=== PATIENT | female | born 1955 | race Caucasian/White ===

== ENCOUNTER 2016-06-27 16:14 | Emergency (ER) | payer OTHER ==
[~2016-06-27] VITALS: Ht 165.1 cm; Wt 72.5 kg
[~2016-06-27 16:14] MED LIST: CIPR500T4 PO; DENO60P SC; PRED20 PO; PRIL20CA PO; QUET200 PO; TRAZ100 PO; TYLE3 PO; VENO20IN IV; VENTAER INH; VITA100020 IM
[2016-06-27 16:17] VITALS: BP 116/59; PULSE 104; RESP 24; TEMP 98; O2SAT 94
--- NOTE | 2016-06-27 16:49 | PD ---
Physical Exam Time Seen by Provider: 16:47 Narrative 60 y/o female presents for evaluation of abdominal pain for 6 days. Hx of diverticulosis. Endorses diarrhea, abdominal distension. vss Seen at triage desk. Awaiting bed placement. Data Data Last Documented VS Vital Signs Date Time Temp Pulse Resp B/P Pulse Ox O2 Delivery O2 Flow Rate FiO2 06/27/16 16:17 98.0 104 24 116/59 94 Room Air MDM Medical Record Reviewed: Yes Supervised Visit with SULY: No Narrative Course 1653: very soon after this patient was checked in she eleced to leave AMA. She was seen walking out and there was no chance to discuss with the patient the risks of leaving AMA. Koby Amezcua June 27, 2016 16:49
[2016-06-27] MEDS ORDERED: DULE200A INH (17:46)
[2016-06-27] MEDS ORDERED: SYMB160A INH (17:46)
[2016-06-27] MEDS ORDERED: [UNRECOGNIZED DRUG - CODE] PO (17:46)
[2016-06-27] MEDS ORDERED: TRAZ100T4 PO (17:46)
[2016-06-27] MEDS ORDERED: VENTAER INH (17:46)
[2016-06-27] MEDS ORDERED: QUET1TAB9 PO (17:46)
[2016-06-27] MEDS ORDERED: LINA290C PO (17:46)
[2016-06-27] MEDS ORDERED: METR-1 PO (20:58)
[2016-06-27] MEDS ORDERED: CIPR-9 PO (20:58)
[2016-06-27] MEDS ORDERED: PERC5TAB12 PO (20:58)
== END 2016-06-27 16:52 | disposition left against medical advice (07) ==
LOC: NED 16:14
DX: R10.9 Unspecified abdominal pain (principal); R19.7 Diarrhea, unspecified; R14.0 Abdominal distension (gaseous); Z87.19 Personal history of other diseases of the digestive system; Z53.20 Procedure and treatment not carried out because of patient's decision for unspecified reasons
CPT/HCPCS: 99283

== ENCOUNTER 2016-06-27 17:22 | Emergency (ER) | payer OTHER ==
[~2016-06-27] VITALS: Ht 167.6 cm; Wt 73.0 kg
[2016-06-27 17:25] VITALS: BP 97/75; PULSE 94; RESP 16; TEMP 98.2; O2SAT 96
[2016-06-27] MEDS ORDERED: LINA290C PO (17:46)
[2016-06-27] MEDS ORDERED: DULE200A INH (17:46)
[2016-06-27] MEDS ORDERED: [UNRECOGNIZED DRUG - CODE] PO (17:46)
[2016-06-27] MEDS ORDERED: VENTAER INH (17:46)
[2016-06-27] MEDS ORDERED: QUET1TAB9 PO (17:46)
[2016-06-27] MEDS ORDERED: SYMB160A INH (17:46)
[2016-06-27] MEDS ORDERED: TRAZ100T4 PO (17:46)
[2016-06-27] MEDS ORDERED: SODIUM CHLOR 0.9% 1000 ML INJ 1,000 ML IV SCH (18:01)
--- NOTE | 2016-06-27 18:04 | PD ---
HPI Chief Complaint: Abdominal Pain Time Seen by Provider: 17:54 Travel History International Travel<30 days: No Contact w/Intl Traveler<30days: No Traveled to known affect area: No History of Present Illness HPI 60-year-old female with history of Bunny-en-Y gastric bypass surgery in 1998, hysterectomy, appendectomy, cholecystectomy, here for evaluation of abdominal pain and bloating. Symptoms similar going on for about a week, worse today. Patient reports that initially she was constipated, however is taking medications for this and is now having diarrhea. She feels nauseous but has not vomited. She has not noted any fevers or chills. No urinary symptoms. No vaginal bleeding or discharge. She reports a history of diverticulitis. PFSH Past Medical History Arthritis: Yes (RA, OA) Diabetes: No Diminished Hearing: No Diverticulitis: Yes Fibromyalgia: Yes Gastrointestinal Disorders: Yes (CONSTIPATION) GERD: Yes Neurologic: Yes (ms) Respiratory: Yes (COPD) Tetanus Vaccination: < 5 Years Influenza Vaccination: Yes ?: Not Past Surgical History Abdominal Surgery: Yes (GASTRIC BYPASS) Appendectomy: Yes Cholecystectomy: Yes Hysterectomy: Yes Tonsillectomy: Yes Other Surgery: Yes (FACE LIFT) Social History Alcohol Use: Yes (SOC) Tobacco Use: No (QUIT 11/2015) Substance Use: No Allergies-Medications (Allergen,Severity, Reaction): Coded Allergies: Latex (Verified Allergy, Severe, Rash, 06/27/16) Sulfa (Verified Allergy, Severe, Anaphylaxis, 06/27/16) Reported Meds & Prescriptions Reported Meds & Active Scripts Active Reported Polyethylene Glycol 3350 (Polyethylene Glycol 3350 (Bulk) 1 Gra Gra 1 PO DIRECTED Linzess (Linaclotide) 290 Mcg Cap 290 Mcg PO DAILY Dulera 120 Act Inh (Mometasone-Formoterol 120 Act Inh) 200-5 Mcg/Act Inh 2 Puff INH BID Symbicort Inh (Budesonide/Formoterol Fumarate) 160-4.5 Mcg/Act Aero 1 Puff INH Q12HR Ventolin Hfa 18 GM Inh (Albuterol Sulfate) 90 Mcg/Act Aer 1 Puff INH Q4H PRN Quetiapine (Quetiapine Fumarate) 200 Mg Tab 200 Mg PO HS Trazodone (Trazodone HCl) 100 Mg Tab 100 Mg PO HS Review of Systems Except as stated in HPI: all other systems reviewed are Neg Physical Exam Narrative GENERAL: Well-developed, well-nourished,no acute distress SKIN: Focused skin assessment warm/dry. HEAD: Atraumatic. Normocephalic. EYES: Pupils equal and round. No scleral icterus. No injection or drainage. ENT: Mucous membranes pink and moist. NECK: Trachea midline. No JVD. CARDIOVASCULAR: Regular rate and rhythm. RESPIRATORY: No accessory muscle use. Clear to auscultation. Breath sounds equal bilaterally. GASTROINTESTINAL: Abdomen soft, mildly distended with moderate diffuse tenderness. No peritoneal signs. Large/well-healed/midline/vertical surgical scar. Normal bowel sounds. MUSCULOSKELETAL: No obvious deformities. No clubbing. No cyanosis. No edema. NEUROLOGICAL: Awake and alert. No obvious cranial nerve deficits. Motor grossly within normal limits. Normal speech. PSYCHIATRIC: Appropriate mood and affect; insight and judgment normal. Data Data Last Documented VS Vital Signs Date Time Temp Pulse Resp B/P Pulse Ox O2 Delivery O2 Flow Rate FiO2 06/27/16 18:19 98 Room Air 06/27/16 17:25 98.2 94 16 97/75 Orders Complete Blood Count With Diff (06/27/16 18:01) Comprehensive Metabolic Panel (06/27/16 18:01) Lipase (06/27/16 18:01) Lactic Acid (06/27/16 18:01) Prothrombin Time / Inr (Pt) (06/27/16 18:01) Act Partial Throm Time (Ptt) (06/27/16 18:01) Urinalysis - C+S If Indicated (06/27/16 18:01) Ct Abd/Pel W Iv Contrast(Rout) (06/27/16 18:01) Iv Access Insert/Monitor (06/27/16 18:01) Ecg Monitoring (06/27/16 18:01) Oximetry (06/27/16 18:01) Ondansetron Inj (Zofran Inj) (06/27/16 18:15) Sodium Chlor 0.9% 1000 Ml Inj (Ns 1000 M (06/27/16 18:01) Sodium Chloride 0.9% Flush (Ns Flush) (06/27/16 18:15) Electrocardiogram (06/27/16 18:01) Oral Contrast - Adult (06/27/16 18:09) Diatrizoate Liq ( Gastrorohit Liq) (06/27/16 18:21) Iohexol 350 Inj (Omnipaque 350 Inj) (06/27/16 20:20) Ciprofloxacin (Cipro) (06/27/16 21:00) Metronidazole (Flagyl) (06/27/16 21:00) Labs Laboratory Tests Test 06/27/16 06/27/16 18:15 18:30 White Blood Count 5.5 TH/MM3 Red Blood Count 5.13 MIL/MM3 Hemoglobin 13.7 GM/DL Hematocrit 41.9 % Mean Corpuscular Volume 81.7 FL Mean Corpuscular Hemoglobin 26.7 PG Mean Corpuscular Hemoglobin 32.6 % Concent Red Cell Distribution Width 14.8 % Platelet Count 302 TH/MM3 Mean Platelet Volume 7.9 FL Neutrophils (%) (Auto) 55.8 % Lymphocytes (%) (Auto) 29.1 % Monocytes (%) (Auto) 10.1 % Eosinophils (%) (Auto) 2.5 % Basophils (%) (Auto) 2.5 % Neutrophils # (Auto) 3.1 TH/MM3 Lymphocytes # (Auto) 1.6 TH/MM3 Monocytes # (Auto) 0.6 TH/MM3 Eosinophils # (Auto) 0.1 TH/MM3 Basophils # (Auto) 0.1 TH/MM3 CBC Comment DIFF FINAL Differential Comment Urine Color YELLOW Urine Turbidity CLEAR Urine pH 5.5 Urine Specific Sharon 1.021 Urine Protein NEG mg/dL Urine Glucose (UA) NEG mg/dL Urine Ketones NEG mg/dL Urine Occult Blood NEG Urine Nitrite NEG Urine Bilirubin NEG Urine Leukocyte Esterase TRACE Urine RBC 0-3 /hpf Urine WBC 0-2 /hpf Urine Squamous Epithelial 0-5 /hpf Cells Urine Calcium Oxalate Crystals MANY /hpf Microscopic Urinalysis Comment CULT NOT INDICATED Sodium Level 142 MEQ/L Potassium Level 4.4 MEQ/L Chloride Level 104 MEQ/L Carbon Dioxide Level 29.4 MEQ/L Anion Gap 9 MEQ/L Blood Urea Nitrogen 10 MG/DL Creatinine 0.62 MG/DL Estimat Glomerular Filtration 99 ML/MIN Rate Random Glucose 83 MG/DL Lactic Acid Level 0.8 mmol/L Calcium Level 8.8 MG/DL Total Bilirubin 0.7 MG/DL Aspartate Amino Transf 20 U/L (AST/SGOT) Alanine Aminotransferase 14 U/L (ALT/SGPT) Alkaline Phosphatase 107 U/L Total Protein 6.7 GM/DL Albumin 3.3 GM/DL Lipase 163 U/L Prothrombin Time 10.1 SEC Prothromb Time International 0.9 RATIO Ratio Activated Partial 25.7 SEC Thromboplast Time MDM Medical Decision Making Medical Screen Exam Complete: Yes Emergency Medical Condition: Yes Differential Diagnosis Diverticulitis, colitis, internal hernia, pancreatitis, hepatobiliary disease Narrative Course Initial vital signs show heart rate 94, blood pressure 97/75, pulse ox 98% on room air, oral temp of 98.2F. CBC is unremarkable. CMP is unremarkable. Lactic acid is 0.8. UA shows trace site esterase, many calcium oxalate crystals, otherwise unremarkable. CT abdomen pelvis: CONCLUSION: 1. Mild, uncomplicated sigmoid colon diverticulitis. 2. Previous gastric bypass. Very small hiatal hernia. 3. Previous cholecystectomy and hysterectomy. 4. 8mm nodule of the visualized left lung base. It abuts the pleura. Followup noncontrast chest CT is recommended in 4-6 months. Patient was made aware of all findings as well as the pulmonary nodule and recommendation for repeat CT in 4-6 months. She was given a copy of this CT report. She did not wish to receive any pain medication while in the emergency department. She is hopeful that she will be able to be discharged home. I will start her on Cipro and Flagyl. PMD follow-up this week. She was informed on when to return to the emergency department. She verbalizes understanding and agreement with plan. Diagnosis Primary Impression: Sigmoid diverticulitis Additional Impression: Pulmonary nodule Referrals: Primary Care Physician 3 days Additional Instructions: Take antibiotics as prescribed. Follow-up with your primary care physician this week. Return to the emergency department for worsening symptoms or any other concerns. Scripts Oxycodone-Acetaminophen (Percocet)5-325 mg Tab1 Tab PO Q6H PRN (PAIN) #15 TAB Ref 0 Prov:Steven Moreno MD 06/27/16 Metronidazole (Flagyl)500 Mg [id number] Mg PO BID 10 Days Ref 0 Prov:Steven Moreno MD 06/27/16 Ciprofloxacin (Cipro)500 Mg [id number] Mg PO BID 10 Days Ref 0 Prov:Steven Moreno MD 06/27/16 Disposition: 01 DISCHARGE HOME Condition: Stable Steven Moreno MD June 27, 2016 18:04
[2016-06-27] MEDS ORDERED: ONDANSETRON HCL 4 MG/2 ML VIAL IVP ONE (18:15)
[2016-06-27] MEDS ORDERED: SODIUM CHLORIDE 0.9% FLUSH 10 ML FLUSH IV FLUSH PRN (18:15)
[2016-06-27 18:19] VITALS: O2SAT 98
[2016-06-27] MEDS ORDERED: DIATRIZOATE MEGLUM/DIATRIZOATE SOD 9 ML CUP ONE (18:21)
[2016-06-27 18:26] LABS: BLOOD, URINE NEG (NEG); GLUCOSE,URINE NEG (NEG); KETONE, URINE NEG (NEG); NITRITE,URINE NEG (NEG); PH, URINE 5.5 (5.0-8.5)
[2016-06-27 18:27] LABS: AUTOMATED NEUTROPHIL # 3.1 TH/MM3 (1.8-7.7); BASOPHIL # 0.1 TH/MM3 (0-0.2); BASOPHIL % 2.5 % (0.0-2.0); EOSINOPHIL # 0.1 TH/MM3 (0-0.4); EOSINOPHIL % 2.5 % (0.0-4.0); HEMATOCRIT 41.9 % (35.0-46.0); HEMO FLAGS DIFF FINAL; LYMPH % 29.1 % (9.0-44.0); LYMPHOCYTE # 1.6 TH/MM3 (1.0-4.8); MEAN CELL VOLUME 81.7 FL (80.0-100.0); MEAN CORPUSCULAR HEMOGLOBIN 26.7 PG (27.0-34.0); MEAN CORPUSCULAR HGB CONC 32.6 % (32.0-36.0); MONO % 10.1 % (0.0-8.0); NEUT % 55.8 % (16.0-70.0); PLATELET COUNT 302 TH/MM3 (150-450); RED BLOOD COUNT 5.13 MIL/MM3 (4.00-5.30); RED CELL DISTRIBUTION WIDTH 14.8 % (11.6-17.2); WHITE BLOOD COUNT 5.5 TH/MM3 (4.0-11.0)
[2016-06-27 18:41] LABS: URINE COLOR YELLOW (YELLW/STRAW)
[2016-06-27 18:42] LABS: CALCIUM OXALATE CRYSTALS,URINE MANY /hpf; COMMENT (UR) CULT NOT INDICATED; CULTURE IF INDICATED CULT NOT INDICATED; RBC, URINE 0-3 /hpf (0-3); SQUAMOUS EPITHELIAL CELL URINE 0-5 /hpf (0-5); WBC, URINE 0-2 /hpf (0-5)
[2016-06-27 18:46] LABS: CHLORIDE 104 MEQ/L (98-107); POTASSIUM 4.4 MEQ/L (3.5-5.1); SODIUM (NA) 142 MEQ/L (136-145)
[2016-06-27 18:50] LABS: ANION GAP 9 MEQ/L (5-15); BICARBONATE 29.4 MEQ/L (21.0-32.0); BLOOD UREA NITROGEN 10 MG/DL (7-18)
[2016-06-27 18:53] LABS: ALT (GPT) 14 U/L (10-53); AST (GOT) 20 U/L (15-37); GLOMERULAR FILTRATION RATE 99 ML/MIN (>89)
[2016-06-27 18:55] LABS: TOTAL BILIRUBIN ADULT 0.7 MG/DL (0.2-1.0)
[2016-06-27 18:56] LABS: ALKALINE PHOSPHATASE 107 U/L (45-117)
[2016-06-27 18:59] LABS: APTT (PATIENT) 25.7 SEC (24.3-30.1); INTERNATIONAL NORMALIZED RATIO 0.9 RATIO; PROTHROMBIN TIME - PATIENT 10.1 SEC (9.8-11.6)
[2016-06-27 19:05] VITALS: BP 122/81; PULSE 81; RESP 16; O2SAT 99
[2016-06-27] MEDS ORDERED: IOHEXOL 350 MG/ML 10 ML VIAL (for RAD DIAG) IV ONE (20:20)
--- NOTE | 2016-06-27 20:33 | RADHPO ---
EXAM DATE/TIME: 06/27/2016 19:53 [facility] COMPARISON: No previous studies available for comparison. INDICATIONS : Left abdominal pain. Bloating. IV CONTRAST: 100 cc Omnipaque 350 (iohexol) IV ORAL CONTRAST: Prescribed oral contrast ingested. RADIATION DOSE: 12.36 CTDIvol (mGy) MEDICAL HISTORY : Diverticulitis. Chronic obstructive pulmonary disease. SURGICAL HISTORY : Gastric bypass. Appendectomy.Cholecystectomy.Hysterectomy. ENCOUNTER: Initial ACUITY: 2 days PAIN SCALE: 8/10 LOCATION: Left abdominal. TECHNIQUE: Volumetric scanning of the abdomen and pelvis was performed. Using automated exposure control and ad justment of the mA and/or kV according to patient size, radiation dose was kept as low as reasonably achievable to obtain optimal diagnostic quality images. FINDINGS: LOWER LUNGS: There is an 8mm nodule of the visualized left lower lobe. LIVER: Homogeneous density without lesion. There is no dilation of the biliary tree. Previous cholecystecto my. SPLEEN: Normal size without lesion. PANCREAS: Within normal limits. KIDNEYS: Normal in size and shape. There is no mass, stone or hydronephrosis. ADRENAL GLANDS: Within normal limits. VASCULAR: There is no aortic aneurysm. BOWEL/MESENTERY: His gastric bypass. Very small hiatal hernia. No GI tract obstruction demonstrated. Mild inflammatory changes are seen of the proximal sigmoid colon. Diverticula are present. No free or loculated fluid. No obstruction.ABDOMINAL WALL: Within normal limits. RETROPERITONEUM: There is no lymphadenopathy. BLADDER: No wall thickening or mass. REPRODUCTIVE: Status post hysterectomy. INGUINAL: There is no lymphadenopathy or hernia. MUSCULOSKELETAL: No acute bony abnormality. CONCLUSION: 1. Mild, uncomplicated sigmoid colon diverticulitis. 2. Previous gastric bypass. Very small hiatal hernia. 3. Previous cholecystectomy and hysterectomy. 4. 8mm nodule of the visualized left lung base. It abuts the pleura. Followup noncontrast chest CT is recommended in 4-6 months. Landon Turk MD on June 27, 2016 at 20:25 Board Certified Radiologist. This report was verified electronically.
[2016-06-27] MEDS ORDERED: PERC5TAB12 PO (20:58)
[2016-06-27] MEDS ORDERED: CIPR-9 PO (20:58)
[2016-06-27] MEDS ORDERED: METR-1 PO (20:58)
[2016-06-27 21:00] VITALS: BP 106/70; PULSE 85; RESP 16; O2SAT 98
[2016-06-27] MEDS ORDERED: metroNIDAZOLE 500 MG TAB PO ONE (21:00)
[2016-06-27] MEDS ORDERED: CIPROFLOXACIN 500 MG TAB PO ONE (21:00)
[2016-06-27 21:05] VITALS: BP 122/81; PULSE 81; RESP 16; O2SAT 99
--- NOTE | 2016-06-27 22:37 | EKG ---
Date Performed: 06/27/2016 Time Performed: 18:16:18 PTAGE: 60 years EKG: Sinus rhythm rSr'(V1) - probable normal variant Normal ECG PREVIOUS TRACING : 03/28/2014 16.57 No significant change from previous tracing noted. DOCTOR: Tanner Stubbs Interpretating Date/Time 06/27/2016 22:35:47
== END 2016-06-27 21:23 | disposition home or self-care (01) ==
LOC: PHED 17:22
DX: K57.32 Diverticulitis of large intestine without perforation or abscess without bleeding (principal); R91.1 Solitary pulmonary nodule; K44.9 Diaphragmatic hernia without obstruction or gangrene; K21.9 Gastro-esophageal reflux disease without esophagitis; M79.7 Fibromyalgia; J44.9 Chronic obstructive pulmonary disease, unspecified; R11.0 Nausea; Z90.710 Acquired absence of both cervix and uterus; Z90.49 Acquired absence of other specified parts of digestive tract; Z98.84 Bariatric surgery status; Z87.891 Personal history of nicotine dependence
CPT/HCPCS: 74177; 80053; 81001; 83605; 83690; 85025; 85610; 85730; 93005; 96361; 96374; 99284; J2405; J7030; Q9963; Q9967

== ENCOUNTER 2017-04-07 17:27 | Emergency (ER) | payer OTHER ==
[~2017-04-07] VITALS: Ht 165.1 cm; Wt 77.4 kg
[~2017-04-07 17:27] MED LIST changes: +CIPR-9 PO; -CIPR500T4 PO; -DENO60P SC; +DULE200A INH; +LINA290C PO; +METR-1 PO; +PERC5TAB12 PO; -PRED20 PO; -PRIL20CA PO; +QUET1TAB9 PO; -QUET200 PO; +SYMB160A INH; -TRAZ100 PO; +TRAZ100T4 PO; -TYLE3 PO; -VENO20IN IV; -VITA100020 IM; +[UNRECOGNIZED DRUG - CODE] PO
[2017-04-07 17:35] VITALS: BP 121/73; PULSE 95; RESP 18; TEMP 99.6; O2SAT 96
[2017-04-07] MEDS ORDERED: LUNE1TAB8 PO (17:51)
[2017-04-07] MEDS ORDERED: SERO25TA PO (17:51)
[2017-04-07] MEDS ORDERED: ALBUAER3 INH (17:51)
[2017-04-07] MEDS ORDERED: TRAZ50TA12 PO (17:51)
[2017-04-07] MEDS ORDERED: LEVA500T33 PO (18:15)
[2017-04-07] MEDS ORDERED: PRED20 PO (18:15)
[2017-04-07] MEDS ORDERED: BENZ100 PO (18:15)
--- NOTE | 2017-04-07 18:15 | PD ---
HPI Chief Complaint: Cold / Flu Symptoms Time Seen by Provider: 17:45 Travel History International Travel<30 days: No Contact w/Intl Traveler<30days: No Traveled to known affect area: No History of Present Illness HPI This is a 61-year-old female with a productive cough and fever intermittently for the last month. She reports that she was treated for bronchitis by her PCP with azithromycin. She reports symptoms only slightly improved the completion of the antibiotics. Symptoms then reemerged this past week. She is reporting yellowish green phlegm. She has a history of COPD and is reporting intermittent wheezing. Symptom severity is moderate. No aggravating or alleviating factors. PFSH Past Medical History Arthritis: Yes (RA, OA) Diabetes: No Diminished Hearing: No Diverticulitis: Yes Fibromyalgia: Yes Gastrointestinal Disorders: Yes (CONSTIPATION) GERD: Yes Neurologic: Yes (ms) Respiratory: Yes (COPD) Influenza Vaccination: Yes ?: Not Past Surgical History Abdominal Surgery: Yes (GASTRIC BYPASS) Appendectomy: Yes Cholecystectomy: Yes Hysterectomy: Yes Tonsillectomy: Yes Other Surgery: Yes (FACE LIFT) Social History Alcohol Use: Yes (SOC) Tobacco Use: No (QUIT 11/2015) Substance Use: No Allergies-Medications (Allergen,Severity, Reaction): Coded Allergies: Sulfa (Sulfonamide Antibiotics) (Verified Allergy, Severe, Anaphylaxis, 04/07/17) latex (Verified Allergy, Severe, Rash, 04/07/17) Reported Meds & Prescriptions Reported Meds & Active Scripts Active Reported Seroquel (Quetiapine Fumarate) 25 Mg Tab Unknown Dose PO BID Lunesta (Eszopiclone) 1 Mg Tab Unknown Dose PO HS PRN Proair Hfa 8.5 GM Inh (Albuterol Sulfate) 90 Mcg/Act Aer 1 Puff INH Q4H PRN 108 mcg/actuation Trazodone (Trazodone HCl) 50 Mg Tab Unknown Dose PO HS Linzess (Linaclotide) 290 Mcg Cap 290 Mcg PO DAILY Symbicort Inh (Budesonide/Formoterol Fumarate) 160-4.5 Mcg/Act Aero 1 Puff INH Q12HR Review of Systems Except as stated in HPI: all other systems reviewed are Neg General / Constitutional: Positive: Fever Eyes: No: Visual changes HENT: No: Headaches Cardiovascular: No: Chest Pain or Discomfort Respiratory: Positive: Cough, Wheezing Gastrointestinal: No: Abdominal Pain Genitourinary: No: Dysuria Musculoskeletal: No: Pain Skin: No Rash Physical Exam Narrative GENERAL: Alert and well-appearing 61 year old female. SKIN: Warm and dry. No rash HEAD: Normocephalic. EYES: No injection or drainage. NECK: Supple CARDIOVASCULAR: Regular rate and rhythm RESPIRATORY: Breath sounds equal bilaterally. No accessory muscle use. Rhonchi present bilaterally. GASTROINTESTINAL: Abdomen soft, non-tender, nondistended. MUSCULOSKELETAL: No cyanosis, or edema. BACK: Nontender without obvious deformity. No CVA tenderness. Data Data Last Documented VS Vital Signs Date Time Temp Pulse Resp B/P (MAP) Pulse Ox O2 Delivery O2 Flow Rate FiO2 04/07/17 17:35 99.6 95 18 121/73 (89) 96 MDM Medical Decision Making Medical Screen Exam Complete: Yes Emergency Medical Condition: Yes Differential Diagnosis Bronchitis, pneumonia, influenza Narrative Course 61 year old female here with productive cough. She is nontoxic appearing. Her vital signs are stable. Patient has history history of COPD. She failed to respond to azithromycin. She has rhonchi present bilaterally. She'll be treated with Levaquin. She reports she's had favorable outcomes with this medication in the past. Diagnosis Primary Impression: Bronchitis Referrals: Primary Care Physician Additional Instructions: Medications as prescribed. Continue to use her albuterol inhaler/nebulizer as needed. Follow-up with her primary doctor for recheck. Return if he developed new or worsening symptoms. Scripts Benzonatate (Tessalon Perles) 100 Mg Cap 200 MG PO TID Y for COUGH, #14 CAP 0 Refills Prov: Chantal Martin 04/07/17 Prednisone (Prednisone) 20 Mg Tab 40 MG PO DAILY, #10 TAB 0 Refills Take 40 mg (2 tablets) daily for 5 days Prov: Chantal Martin 04/07/17 Levofloxacin (Levaquin) 500 Mg Tablet 500 MG PO DAILY for Infection for 7 Days, #7 TAB 0 Refills Prov: Chantal Martin 04/07/17 Disposition: 01 DISCHARGE HOME Condition: Stable Chantal Martin Apr 07, 2017 18:15
== END 2017-04-07 18:22 | disposition home or self-care (01) ==
LOC: PHEFT 17:27
DX: J40 Bronchitis, not specified as acute or chronic (principal); M19.90 Unspecified osteoarthritis, unspecified site; M79.7 Fibromyalgia; K21.9 Gastro-esophageal reflux disease without esophagitis; J44.9 Chronic obstructive pulmonary disease, unspecified
CPT/HCPCS: 99283

== ENCOUNTER 2017-06-13 14:20 | Emergency (ER) | payer OTHER ==
[~2017-06-13] VITALS: Ht 165.1 cm; Wt 75.8 kg
[~2017-06-13 14:20] MED LIST changes: +ALBUAER3 INH; +BENZ100 PO; -CIPR-9 PO; -DULE200A INH; +LEVA500T33 PO; +LUNE1TAB8 PO; -METR-1 PO; -PERC5TAB12 PO; +PRED20 PO; -QUET1TAB9 PO; +SERO25TA PO; -TRAZ100T4 PO; +TRAZ50TA12 PO; -VENTAER INH; -[UNRECOGNIZED DRUG - CODE] PO
[2017-06-13 14:34] VITALS: BP 102/59; PULSE 80; RESP 16; TEMP 97.5; O2SAT 97
--- NOTE | 2017-06-13 15:02 | PD ---
HPI Chief Complaint: Musculoskeletal Complaint Time Seen by Provider: 14:40 Travel History International Travel<30 days: No Contact w/Intl Traveler<30days: No Traveled to known affect area: No History of Present Illness HPI 61-year-old female with history of MS, POTS, fibromyalgia, osteo-porosis presents emergency department for evaluation of right wrist pain that started 3 days ago. Says that she has a history of osteoporosis and is concerned that she may have injured her wrist after getting out of bed. Patient says that she gets out of her bed by placing her hand flat on the bed and lifting herself off to her feet. She denies any other inciting events or trauma. Says in addition , she noticed a mass on the palmar aspect of her wrist that is very tender to palpation. Says this mass just showed up one day. She has limited range of motion secondary to this pain. In addition, says that she has some numbness to the radial aspect of her lower arm that feels unusual to her. Says she is able to feel palpation however, says that she does not have full sensation of the arm. She says that the unusual sensation may be related to the MS or fibromyalgia so she is more concerned about her wrist pain however, she mentions this in case they are related. She denies any other weakness or manifestations of MS. PFSH Past Medical History Arthritis: Yes (RA, OA) Diabetes: No Diminished Hearing: No Diverticulitis: Yes Fibromyalgia: Yes Gastrointestinal Disorders: Yes (CONSTIPATION) GERD: Yes Neurologic: Yes (ms) Respiratory: Yes (COPD) Past Surgical History Abdominal Surgery: Yes (GASTRIC BYPASS) Appendectomy: Yes Cholecystectomy: Yes Hysterectomy: Yes Tonsillectomy: Yes Other Surgery: Yes (FACE LIFT) Social History Alcohol Use: Yes (OCCASIONAL) Tobacco Use: Yes (1PPD) Substance Use: No Allergies-Medications (Allergen,Severity, Reaction): Coded Allergies: Sulfa (Sulfonamide Antibiotics) (Verified Allergy, Severe, Anaphylaxis, ) latex (Verified Allergy, Severe, Rash, 06/13/17) zolpidem (Verified Allergy, Intermediate, sleep walks, 06/13/17) Reported Meds & Prescriptions Reported Meds & Active Scripts Active Reported Seroquel (Quetiapine Fumarate) 25 Mg Tab Unknown Dose PO BID Lunesta (Eszopiclone) 1 Mg Tab Unknown Dose PO HS PRN Trazodone (Trazodone HCl) 50 Mg Tab Unknown Dose PO HS Linzess (Linaclotide) 290 Mcg Cap 290 Mcg PO DAILY Review of Systems Except as stated in HPI: all other systems reviewed are Neg Physical Exam Narrative GENERAL: Well-nourished, well-developed patient. SKIN: Focused skin assessment warm/dry. HEAD: Normocephalic. EYES: No scleral icterus. No injection or drainage. PERRLA, EOMI NECK: Supple, trachea midline. No JVD or lymphadenopathy. CARDIOVASCULAR: Regular rate and rhythm without murmurs, gallops, or rubs. RESPIRATORY: Breath sounds equal bilaterally. No accessory muscle use. GASTROINTESTINAL: Abdomen soft, non-tender, nondistended. No CVA tenderness MUSCULOSKELETAL: No cyanosis, or edema. Right arm- no obvious neuro deficits, grade 5/5 strength of extremity. 5mm, round mobile mass over distal radius, palmar aspect. TTP, reproducing her pain. Unable to perform Phalen secondary to wrist pain. Tinel negative to carpal or cubital region. BACK: Nontender without obvious deformity. No CVA tenderness. Data Data Last Documented VS Vital Signs Date Time Temp Pulse Resp B/P (MAP) Pulse Ox O2 Delivery O2 Flow Rate FiO2 06/13/17 14:34 97.5 80 16 102/59 (73) 97 Orders Orders Wrist, Complete ([id number]) (06/13/17 ) Ed Discharge Order (06/13/17 15:51) MDM Medical Decision Making Medical Screen Exam Complete: Yes Emergency Medical Condition: Yes Differential Diagnosis Right wrist ganglionic cyst, neuropathy, fracture, contusion Narrative Course 61-year-old female with history of MS, POTS, fibromyalgia, osteo-porosis presents emergency department for evaluation of right wrist pain that started 3 days ago. Says that she has a history of osteoporosis and is concerned that she may have injured her wrist after getting out of bed. Patient says that she gets out of her bed by placing her hand flat on the bed and lifting herself off to her feet. She denies any other inciting events or trauma. Says in addition , she noticed a mass on the palmar aspect of her wrist that is very tender to palpation. Says this mass just showed up one day. She has limited range of motion secondary to this pain. In addition, says that she has some numbness to the radial aspect of her lower arm that feels unusual to her. Says she is able to feel palpation however, says that she does not have full sensation of the arm. She says that the unusual sensation may be related to the MS or fibromyalgia so she is more concerned about her wrist pain however, she mentions this in case they are related. She denies any other weakness or manifestations of MS. After further discussion, patient says that she frequently has this unusual numbness as a manifestation of fibromyalgia that persist for a couple of days then resolve spontaneously. She feels that after examination and discussion today that this may be the cause of her sensation. I could not appreciate any neuro deficits. 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 She denies any head or neck pain. Denies blurred vision. Denies generalized weakness. Wrist x-ray did not demonstrate any acute process. Patient is advised to follow-up with primary care physician and consider document specialist for evaluation of this cyst. Patient likely has a ganglionic cyst of her wrist based off of history and physical today. She says that she will follow up with her PCP this week and subsequently follow up with a specialist regarding her care of her wrist. Tylenol or motrin per package instruction for her pain. Diagnosis Primary Impression: Neuropathy Additional Impression: Other bursal cyst of wrist Qualified Codes: M71.331 - Other bursal cyst, right wrist Referrals: Primary Care Physician Additional Instructions: Use ice or heat for symptom relief. Elevate the joint above the heart to reduce swelling. You may use compression with Matt wrap or similar to reduce swelling. If symptoms persist or worsen, return to the emergency department. Follow up with your primary care physician within 2 days. Disposition: 01 DISCHARGE HOME Condition: Stable Acacia Arango Jun 13, 2017 15:02
--- NOTE | 2017-06-13 15:35 | RADRPT ---
EXAM DATE/TIME: 06/13/2017 14:56 [facility] COMPARISON: No previous studies available for comparison. INDICATIONS : Right lateral wrist pain/swelling radiating up to elbow with no known injury. MEDICAL HISTORY : Chronic obstructive pulmonary disease. Multiple sclerosis. Rheumatoid arthritis. Ostoarthritis. O steoporosis. Smoker. Diverticulitis. Fibromyalgia. SURGICAL HISTORY : Tonsillectomy. Cholecystectomy. Appendectomy. Gastric bypass. Hysterectomy. ENCOUNTER: Initial ACUITY: 3 days PAIN SCORE: 10/10 LOCATION: Right lateral wrist FINDINGS: Three view examination of the right wrist demonstrates no soft tissue swelling, dislocation, or fract ure. The carpal bones are in normal alignment. The joint spaces are maintained. Bony mineralizatio n is normal. CONCLUSION: No acute disease. Daniel Morrissey MD on June 13, 2017 at 15:32 Board Certified Radiologist. This report was verified electronically.
== END 2017-06-13 16:03 | disposition home or self-care (01) ==
LOC: PHEFT 14:20
DX: G62.9 Polyneuropathy, unspecified (principal); M71.331 Other bursal cyst, right wrist; M06.9 Rheumatoid arthritis, unspecified; M79.7 Fibromyalgia; J44.9 Chronic obstructive pulmonary disease, unspecified; F17.210 Nicotine dependence, cigarettes, uncomplicated; G35 Multiple sclerosis
CPT/HCPCS: 73110; 99283